=== PATIENT | male | born 1940 | race Caucasian/White ===

== ENCOUNTER → 2018-11-09 11:32 | Outpatient (CLI) | payer MEDICARE, OTHER, SELFPAY ==
--- NOTE | 2018-11-09 | DI.RAD.S_ITS ---
PROCEDURE: XR SACROILIAC JOINT MIN 3V INDICATIONS: LEFT SI JOINT PAIN FOR 5 MONTHS TECHNIQUE: 3 views of the sacroiliac joints were acquired. COMPARISON: None. FINDINGS: Bones: No bony erosions or ankylosis. No suspicious bony lesions. No fractures. Symmetric bilateral sacroiliac joint osteoarthritis is noted Soft tissues: Overlying bowel gas pattern is normal. No suspicious soft tissue densities. IMPRESSION: Bilateral symmetric sacroiliac joint osteoarthritis expected for age, no acute disease or evidence of spondyloarthropathy. Dictated by: Andres Mireles M.D. on 11/09/2018 at 12:09 Approved by: Andres Mireles M.D. on 11/09/2018 at 12:09
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
== END ==
PROVIDERS: PCP Nurse Practitioner Family; Visit Provider Nurse Practitioner Family
DX: M53.3 Sacrococcygeal disorders, not elsewhere classified (principal); M51.37 Other intervertebral disc degeneration, lumbosacral region; M47.817 Spondylosis without myelopathy or radiculopathy, lumbosacral region; M47.818 Spondylosis without myelopathy or radiculopathy, sacral and sacrococcygeal region
CPT/HCPCS: 72100; 72202

== ENCOUNTER → 2018-11-10 11:52 | Outpatient (CLI) | payer MEDICARE, OTHER, SELFPAY ==
--- NOTE | 2018-11-10 | DI.US.S_ITS ---
PROCEDURE: US ABDOMEN LIMITED INDICATIONS: LLQ PAIN, INGUINAL PAIN TECHNIQUE: Real-time focused scanning was performed of the abdomen, with image documentation. COMPARISON: None. FINDINGS: Prominent left groin lymph nodes measure roughly 9 mm in maximal short axis. No other left inguinal abnormality seen. IMPRESSION: Prominent left inguinal lymph node measuring up to 9.0 cm in maximal short axis. No other left inguinal abnormality seen. Dictated by: Eduardo Mendez [facility] Interpreted: Bonnie Marshall MD on 11/10/2018 at 12:56 Approved by: Bonnie Marshall MD, PhD on 11/10/2018 at 14:45
== END ==
PROVIDERS: PCP Nurse Practitioner Family; Visit Provider Nurse Practitioner Family
DX: R10.32 Left lower quadrant pain (principal); R59.0 Localized enlarged lymph nodes
CPT/HCPCS: 76705

== ENCOUNTER → 2019-10-20 10:10 | Outpatient (CLI) | payer MEDICARE, OTHER, SELFPAY ==
--- NOTE | 2019-10-20 | DI.RAD.S_ITS ---
PROCEDURE: XR HIP W PEL IF DONE RT 2V INDICATIONS: RIGHT HIP PAIN TECHNIQUE: AP pelvis with lateral view(s) of the right hip(s). COMPARISON: [facility], CR, XR SACROILIAC JOINT MIN 3V, . 9, 11:43[facility], CT, IVP (ABD & PEL WWO CONTRAST), 04/26/2013, 11:15. FINDINGS: Bones: No fractures or dislocations. 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 Pelvic ring appears intact. No suspicious bony lesions. Soft tissues: The visualized bowel gas pattern is normal. No suspicious soft tissue calcifications. IMPRESSION: Surgical clips noted at the right inguinal canal internal os area, previously present also on CT scanning, with source of right hip pain other than mild osteoarthritis not identified. The osteoarthritis was present on prior plain film imaging in November of last year. Dictated by: Andres Mireles M.D. on 10/20/2019 at 10:39 Approved by: Andres Mireles M.D. on 10/20/2019 at 10:42
== END ==
PROVIDERS: PCP Student in an Organized Health Care Education/Training Program; Referring Provider Student in an Organized Health Care Education/Training Program; Visit Provider Student in an Organized Health Care Education/Training Program
DX: M25.551 Pain in right hip (principal); M16.11 Unilateral primary osteoarthritis, right hip
CPT/HCPCS: 73502